=== PATIENT | male | born 2000 | race Caucasian/White ===

== ENCOUNTER 2024-01-20 21:54 | Emergency (ER) | payer BC ==
[~2024-01-20] VITALS: Ht 182.9 cm; Wt 68.2 kg
[2024-01-20] MEDS: TETanus/Pertussis (Acell)/Diphther VAC/PF (Tdap-Adult) 0.5ml syringe IMVAC ONE (23:08)
[2024-01-20] MEDS: acetaminophen 325mg tablet PO ONE (23:21)
[2024-01-20] MEDS: LIDOcaine 1% W/epiNEPHrine 1:100,000 20ml vial IJ ONE (23:23)
[2024-01-21] MEDS ORDERED: CEPH-585 PO (00:43)
[2024-01-21 01:13] VITALS: BP 125/78; PULSE 68; RESP 16; TEMP 98.9; O2SAT 98
== END 2024-01-21 01:15 | disposition home or self-care (01) ==
LOC: ER 21:55
DX: S61.411A Laceration without foreign body of right hand, initial encounter (principal); Z88.0 Allergy status to penicillin; Z79.2 Long term (current) use of antibiotics; X58.XXXA Exposure to other specified factors, initial encounter; Y93.89 Activity, other specified; Y92.89 Other specified places as the place of occurrence of the external cause; Y99.8 Other external cause status
CPT/HCPCS: 12004; 73130; 90471; 90715; 99283; A6258; A6449